=== PATIENT | male | born 1940 | race Caucasian/White ===

== ENCOUNTER 2022-05-17 08:06 | Emergency (ER) | payer MEDICARE, BC | END 2022-05-17 10:40 | disposition home or self-care (01) | LOC: LB.ED 08:06 | DX: S42.212A Unspecified displaced fracture of surgical neck of left humerus, initial encounter for closed fracture (principal); S22.31XA Fracture of one rib, right side, initial encounter for closed fracture; E11.9 Type 2 diabetes mellitus without complications; Z79.82 Long term (current) use of aspirin; Z79.84 Long term (current) use of oral hypoglycemic drugs; W18.40XA Slipping, tripping and stumbling without falling, unspecified, initial encounter | CPT/HCPCS: 73030-LT; 73060-LT; 99281; 99283 ==